=== PATIENT | female | born 1990 | race Two or more races ===

== ENCOUNTER 2022-01-14 18:10 | Emergency (ER) | payer SELFPAY ==
[2022-01-14] MEDS: Ondansetron 4 MG/2 ML SDV IVPUSH ONE (18:46)
[2022-01-14] MEDS: Sodium Chloride 0.9% 1,000 ML IV SCH ×2 (19:16→21:08)
[2022-01-14 19:20] LABS: ESTIMATED GFR 119 mL/min (>60)
== END 2022-01-14 22:11 | disposition home or self-care (01) ==
LOC: JP.ED 18:10
DX: E86.0 Dehydration (principal); Z88.0 Allergy status to penicillin; Z20.822 Contact with and (suspected) exposure to COVID-19
CPT/HCPCS: 36415; 70450; 71045; 71045-26; 80053; 80143; 80305-QW; 80307; 81001; 84443; 84703; 85025; 86140; 86308; 93005; 96361; 96374; 99284; 99285-25; J2405; J7030; U0002